=== PATIENT | female | born 1990 | race Two or more races ===

== ENCOUNTER 2021-05-07 04:46 | Emergency (ER) | payer OTHER ==
[~2021-05-07] VITALS: Ht 165.1 cm; Wt 56.4 kg
--- NOTE | 2021-05-07 06:01 | NUR ---
REPORT TO NANCY ANDRE. PT. AWAITING PROVIDER EVAL.
--- NOTE | 2021-05-07 06:05 | NUR ---
REPORT FROM SANGEETHA CRUZ, PT CARE TRANSFERRED AT THIS TIME.
--- NOTE | 2021-05-07 06:35 | NUR ---
PT RESTING ON ALFRED SCHULTZ WILSON MD AT BS FOR EVAL AND POC. LAB AT BS FOR ORDER. PT BED IN LOWEST, RAILS ENGAGED, CALL LIGHT ON LAP, WCTM. NO OTHER CHANGES IN CONDITION AT THIS TIME.
[2021-05-07 06:47] VITALS: BP 137/95
--- NOTE | 2021-05-07 06:55 | NUR ---
BEDSIDE REPORT TO MARIA DEL CARMEN RN, PT CARE TRANSFERRED AT THIS TIME
--- NOTE | 2021-05-07 06:58 | NUR ---
TOOK REPORT FROM JES ROSS RN, ASSUME CARE AT THIS TIME.
== END 2021-05-07 10:35 | disposition home or self-care (01) ==
LOC: ED 05:38
DX: B19.9 Unspecified viral hepatitis without hepatic coma (principal)
CPT/HCPCS: 36415; 86803; 87340; 87806; 99283; G0475